=== PATIENT | male | born 1970 | race Two or more races ===

== ENCOUNTER 2018-03-07 08:18 | Emergency (ER) | payer OTHER ==
[~2018-03-07] VITALS: Ht 165.1 cm; Wt 106.6 kg
[~2018-03-07 08:18] MED LIST: AVAPRO150 MG PO; CLEOCIN HCL300 MG PO; GENTAFAIR5 ML OP; TRAMADOL HCL50 MG PO
[2018-03-07] MEDS ORDERED: LISINOPRIL20 MG (08:32)
[2018-03-07] MEDS ORDERED: ZITHROMAX TRI-500 MG PO (13:07)
[2018-03-07] MEDS ORDERED: MEDROLPACK PO (13:07)
[2018-03-07] MEDS ORDERED: TUSSI PRES-B L120 M1 PO (13:07)
== END 2018-03-07 13:18 | disposition home or self-care (01) ==
LOC: ER 08:18
DX: B34.9 Viral infection, unspecified (principal)

== ENCOUNTER 2018-07-31 08:30 | Outpatient (CLI) | payer OTHER ==
[~2018-07-31 08:30] MED LIST changes: +LISINOPRIL20 MG; +MEDROLPACK PO; +TUSSI PRES-B L120 M1 PO; +ZITHROMAX TRI-500 MG PO
== END 2018-07-31 08:38 | disposition home or self-care (01) ==
LOC: RAD 08:30
DX: L29.0 Pruritus ani (principal)

== ENCOUNTER 2018-08-07 05:55 | Day surgery (SDC) | payer OTHER ==
[2018-08-07] MEDS ORDERED: ULTRACET PO (12:38)
[2018-08-07] MEDS ORDERED: RECTICARE30 GM TOP (12:38)
== END 2018-08-07 17:00 | disposition home or self-care (01) ==
LOC: CIR.AMB 05:55
DX: L29.0 Pruritus ani (principal)

== ENCOUNTER 2019-05-26 08:26 | Emergency (ER) | payer OTHER ==
[~2019-05-26] VITALS: Ht 165.1 cm; Wt 104.3 kg
[~2019-05-26 08:26] MED LIST changes: +RECTICARE30 GM TOP; +ULTRACET PO
[2019-05-26] MEDS ORDERED: ZESTRIL10 M1 PO (08:49)
== END 2019-05-26 10:00 | disposition home or self-care (01) ==
LOC: ER 08:26
DX: L02.31 Cutaneous abscess of buttock (principal); B95.7 Other staphylococcus as the cause of diseases classified elsewhere; B95.1 Streptococcus, group B, as the cause of diseases classified elsewhere

== ENCOUNTER 2020-06-04 21:18 | Emergency (ER) | payer OTHER ==
[~2020-06-04] VITALS: Ht 165.1 cm; Wt 104.3 kg
[~2020-06-04 21:18] MED LIST changes: +ZESTRIL10 M1 PO
[2020-06-05] MEDS ORDERED: KETO10TA2 PO (02:03)
[2020-06-05] MEDS ORDERED: MUPIROCIN22 GM TOP (02:03)
[2020-06-05] MEDS ORDERED: CLEOCIN HCL300 MG PO (02:03)
== END 2020-06-05 02:16 ==
LOC: ER 21:18
DX: L73.2 Hidradenitis suppurativa (principal)